=== PATIENT | male | born 1955 | race Caucasian/White ===

== ENCOUNTER → 2021-03-23 | Outpatient (CLI) | payer MEDICARE | LOC: HEART 5 07:56 | DX: I20.8 Other forms of angina pectoris (principal); R06.02 Shortness of breath; R53.83 Other fatigue | CPT/HCPCS: 78452; 93306; A9502; J2785 ==

== ENCOUNTER → 2021-03-31 | Outpatient (CLI) | payer MEDICARE | LOC: KOH-I 10:41 | DX: R06.02 Shortness of breath (principal); R91.8 Other nonspecific abnormal finding of lung field | CPT/HCPCS: 71046 ==

== ENCOUNTER → 2021-07-05 | Outpatient (CLI) | payer MEDICARE | LOC: HEART 5 10:05 | DX: R06.02 Shortness of breath (principal); J44.9 Chronic obstructive pulmonary disease, unspecified | CPT/HCPCS: 94010; 95012 ==